=== PATIENT | male | born 1980 | race Caucasian/White ===

== ENCOUNTER 2021-03-07 02:10 | Emergency (ER) | payer OTHER ==
[~2021-03-07] VITALS: Ht 182.9 cm; Wt 122.7 kg
[2021-03-07 02:17] VITALS: BP 132/91
[2021-03-07] MEDS ORDERED: ERYT1OIN6 LEFTEYE (05:23)
[2021-03-07] MEDS ORDERED: proparacaine 0.5% ophthalmic drops 15ml EACHEYE ONE (05:30)
== END 2021-03-07 06:11 | disposition home or self-care (01) ==
LOC: ER 02:11
DX: S05.02XA Injury of conjunctiva and corneal abrasion without foreign body, left eye, initial encounter (principal); H00.024 Hordeolum internum left upper eyelid; Z79.899 Other long term (current) drug therapy; X58.XXXA Exposure to other specified factors, initial encounter; Y93.89 Activity, other specified; Y92.89 Other specified places as the place of occurrence of the external cause; Y99.8 Other external cause status
CPT/HCPCS: 99283